=== PATIENT | male | born 1945 | race Caucasian/White ===

== ENCOUNTER → 2016-10-21 | Outpatient (CLI) | payer MEDICARE, BC ==
[~2016-10-21] MED LIST: ASPI-496 PO; ATOR20TA9 PO; METF500T4 PO; METO25TA35 PO
== END | disposition home or self-care (01) ==
LOC: CFH 08:06
PROVIDERS: ATTEND Internal Medicine Cardiovascular Disease
DX: I25.10 Atherosclerotic heart disease of native coronary artery without angina pectoris (principal); I34.0 Nonrheumatic mitral (valve) insufficiency; I35.0 Nonrheumatic aortic (valve) stenosis; I51.7 Cardiomegaly; I10 Essential (primary) hypertension; I25.2 Old myocardial infarction; Z95.5 Presence of coronary angioplasty implant and graft; Z87.891 Personal history of nicotine dependence
CPT/HCPCS: 78452; 93017; 93306; A9502

== ENCOUNTER → 2018-07-31 | Outpatient (CLI) | payer MEDICARE, BC ==
[~2018-07-31] MED LIST changes: +ATOR20TA37 PO; -ATOR20TA9 PO; +METF500T17 PO; -METF500T4 PO; +OMNIPAQUE 350 MG/ML, 150 ML BOTTLE ONE
== END | disposition home or self-care (01) ==
LOC: CFH 09:51
PROVIDERS: ATTEND Physician Assistant
DX: N40.0 Benign prostatic hyperplasia without lower urinary tract symptoms (principal); K76.0 Fatty (change of) liver, not elsewhere classified; K76.89 Other specified diseases of liver; K57.30 Diverticulosis of large intestine without perforation or abscess without bleeding; N32.89 Other specified disorders of bladder; R91.1 Solitary pulmonary nodule
CPT/HCPCS: 74178; 82565; Q9967

== ENCOUNTER 2018-10-24 10:46 | Outpatient (CLI) | payer MEDICARE, BC ==
[~2018-10-24 10:46] MED LIST changes: -OMNIPAQUE 350 MG/ML, 150 ML BOTTLE ONE
== END 2018-10-24 23:59 | disposition home or self-care (01) ==
LOC: CFH 10:46
PROVIDERS: ATTEND Internal Medicine Cardiovascular Disease
DX: I34.0 Nonrheumatic mitral (valve) insufficiency (principal); I25.10 Atherosclerotic heart disease of native coronary artery without angina pectoris; I25.2 Old myocardial infarction; I10 Essential (primary) hypertension; E78.5 Hyperlipidemia, unspecified; F17.200 Nicotine dependence, unspecified, uncomplicated; E11.9 Type 2 diabetes mellitus without complications
CPT/HCPCS: 93306

== ENCOUNTER 2019-06-02 12:02 | Emergency (ER) | payer MEDICARE, BC ==
[~2019-06-02] VITALS: Ht 167.6 cm; Wt 70.7 kg
[2019-06-02] MEDS: ACETAMINOPHEN 500 MG TABLET PO ONE ×2 (13:00→13:11)
--- NOTE | 2019-06-02 13:00 | NUR ---
PT REPORTS HE HAS TAKEN TYLENOL DAILY THIS WEEK WITH NO IMPROVEMENT, MD CARRASQUILLO NOTIFIED.
[2019-06-02] MEDS ORDERED: ACETAMINOPHEN 500 MG TABLET ONE (13:07)
[2019-06-02] MEDS ORDERED: SILO8CAP2 PO (13:21)
[2019-06-02] MEDS ORDERED: MULT-717 PO (13:21)
[2019-06-02] MEDS ORDERED: METO25TA91 PO (13:21)
[2019-06-02] MEDS ORDERED: FLUT1BLS INH (13:21)
[2019-06-02] MEDS ORDERED: PRO AIR INH (13:21)
[2019-06-02] MEDS ORDERED: ROSU20TA2 PO (13:21)
[2019-06-02 13:23] LABS: BASOPHILS # (AUTO) 0.03 x10^3/uL (0-0.1); BASOPHILS % (AUTO) 0 % (0-1); EOSINOPHILS # (AUTO) 0.17 x10^3/uL (0-0.4); EOSINOPHILS % (AUTO) 1 % (1-7); LYMPHOCYTES # (AUTO) 1.61 x10^3/uL (1-3.4); LYMPHOCYTES % (AUTO) 11 % (22-44); MD NO; MEAN CORPUSCULAR HEMOGLOBIN 31.3 pg (27.5-34.5); MEAN CORPUSCULAR VOLUME 92.1 fL (81-97); MEAN PLATELET VOLUME 9.3 fL (7.4-10.4); MONOCYTES # (AUTO) 0.98 x10^3/uL (0.2-0.8); MONOCYTES % (AUTO) 7 % (2-9); NEUTROPHILS # (AUTO) 11.93 x10^3/uL (1.8-6.8); NEUTROPHILS % (AUTO) 81 % (42-75); PLATELET COUNT 184 x10^3/uL (130-400); RED BLOOD COUNT 5.41 x10^6/uL (4.38-5.82); RED CELL DISTRIBUTION WIDTH 13.3 % (9.4-14.8)
--- NOTE | 2019-06-02 13:24 | NUR ---
PT PRESENTS TO ED WITH C/O RIGHT SIDED NECK PAIN, RADIATING TO HEAD AND TO LEFT SIDE OF NECK X 1 MONTH. PT DENIES INJURY OR TRAUMA. PT DENIES FEVER. PT IS A&OX4, SPEECH CLEAR, AMBULATORY WITH STEADY GAIT. BP AND SPO2 MONITORS IN PLACE .AWAITING CT'S AND DISPO.
[2019-06-02 13:25] VITALS: BP 153/80
[2019-06-02 13:34] LABS: ANION GAP 9 mmol/L (5-15); CALCIUM 8.8 mg/dL (8.5-10.1); CHLORIDE 106 mmol/L (98-107); CREATININE 1.12 mg/dL (0.7-1.3)
[2019-06-02] MEDS ORDERED: KETOROLAC 30 MG/1 ML IM ONE (14:00)
--- NOTE | 2019-06-02 14:16 | NUR ---
PT IN CT AT THIS TIME.
[2019-06-02] MEDS ORDERED: KETOROLAC 30 MG/1 ML ONE (14:34)
--- NOTE | 2019-06-02 14:57 | NUR ---
REPORT FROM ENE HAILE.
--- NOTE | 2019-06-02 15:02 | NUR ---
REPORT GIVEN TO ENE SMITH. PT MEDICATED PER EMAR, PT A&O, RESPS EVEN AND UNLABORED, REFUSING TO WEAR BP AND SPO2 MONITORS AT THIS TIME FOR REPEAT VS. AWAITING CT RESULTS AND DISPO.
--- NOTE | 2019-06-02 15:50 | NUR ---
GIVEN D/C PAPERWORK. VERBALIZED UNDERSTANDING. AMBULATED WITH STEADY GAIT TO RESTROOM.
== END 2019-06-02 16:04 | disposition home or self-care (01) ==
LOC: ED 12:41
DX: M47.812 Spondylosis without myelopathy or radiculopathy, cervical region (principal); M47.814 Spondylosis without myelopathy or radiculopathy, thoracic region; G44.221 Chronic tension-type headache, intractable
CPT/HCPCS: 36415; 70450; 72125; 80048; 82040; 85025; 96372; 99285; J1885

== ENCOUNTER → 2019-10-16 | Outpatient (CLI) | payer MEDICARE, BC ==
[~2019-10-16] MED LIST changes: +FLUT1BLS INH; +METO25TA91 PO; +MULT-717 PO; +PRO AIR INH; +REGADENOSON 0.4 MG/5 ML SYRINGE ONE; +ROSU20TA2 PO; +SILO8CAP2 PO
== END | disposition home or self-care (01) ==
LOC: CFH 07:25
PROVIDERS: ATTEND Internal Medicine Cardiovascular Disease
DX: I08.0 Rheumatic disorders of both mitral and aortic valves (principal); I11.9 Hypertensive heart disease without heart failure; I25.10 Atherosclerotic heart disease of native coronary artery without angina pectoris; I25.2 Old myocardial infarction
CPT/HCPCS: 93306; J2785

== ENCOUNTER → 2020-11-24 | Outpatient (CLI) | payer MEDICARE, BC | END | disposition home or self-care (01) | LOC: CFH 08:43 | PROVIDERS: ATTEND Registered Nurse | DX: I25.10 Atherosclerotic heart disease of native coronary artery without angina pectoris (principal); I10 Essential (primary) hypertension; I25.2 Old myocardial infarction | CPT/HCPCS: 78452; 93017; A9502; J2785 ==